=== PATIENT | female | born 1975 | race African-American/Black ===

== ENCOUNTER 2017-12-10 19:51 | Emergency (ER) | payer MEDICAID ==
[~2017-12-10 19:51] MED LIST: TOPI25 PO; [UNRECOGNIZED DRUG - OTHER] XX
[2017-12-10 20:48] VITALS: BP 133/76; PULSE 70; RESP 16; TEMP 98.3; O2SAT 99
[2017-12-11] MEDS ORDERED: DOXY100C PO (20:43)
[2017-12-11] MEDS ORDERED: ZOFR4TAB3 SL (20:43)
[2017-12-11] MEDS ORDERED: METR1TAB76 PO (20:43)
== END 2017-12-10 21:21 | disposition left against medical advice (07) ==
LOC: NED 19:51
DX: Z53.21 Procedure and treatment not carried out due to patient leaving prior to being seen by health care provider (principal)
CPT/HCPCS: 99281

== ENCOUNTER 2017-12-11 16:18 | Emergency (ER) | payer SELFPAY ==
[~2017-12-11] VITALS: Ht 172.7 cm; Wt 68.9 kg
[2017-12-11] MEDS ORDERED: IOHEXOL 350 MG/ML 10 ML VIAL (for RAD DIAG) IVCONTRAST ONE (16:19)
[2017-12-11 16:33] VITALS: BP 128/68; PULSE 85; RESP 18; TEMP 99.1; O2SAT 99
[2017-12-11] MEDS ORDERED: ONDANSETRON HCL 4 MG/2 ML VIAL IVP ONE (17:00)
[2017-12-11] MEDS ORDERED: KETOROLAC TROMETHAMINE 30 MG/ML (IVP) VIAL IV PUSH ONE (17:00)
--- NOTE | 2017-12-11 17:04 | PD ---
HPI Chief Complaint: Flank/Kidney Pain Time Seen by Provider: 16:52 Travel History International Travel<30 days: No Contact w/Intl Traveler<30days: No Traveled to known affect area: No History of Present Illness HPI 42yo F with PMH of STI years ago that was treated presents to the ED with c/o vaginal discharge for 3-4 days. Said it is fishing smelling and whitish. Then she started having lower abdominal pain radiating to bilateral lower back and associated with nausea. +Chills at home but no documented fever. Pt took BC powder with no improvement. Pt is sexually active and said she had tubal ligation before. +Dysuria. Denies any chest pain, sob, vomiting, vaginal bleeding, focal weakness or numbness. PFSH Past Medical History Blood Disorders: No Cardiovascular Problems: No Diabetes: No Diminished Hearing: No Endocrine: No Genitourinary: No Headaches: Yes Musculoskeletal: No Psychiatric: No Reproductive: No Respiratory: No Immunizations Current: Yes Migraines: Yes ?: Not LMP: november 2017 Menopausal: No : 5 Para: 5 Miscarriage: 0 : 0 Tubal Ligation: Yes Social History Alcohol Use: No Tobacco Use: Yes Substance Use: No Allergies-Medications (Allergen,Severity, Reaction): Coded Allergies: acetaminophen (Unverified Adverse Reaction, Severe, "MAKES ME SICK TO MY STOMACH", 12/11/17) doxycycline (Unverified Adverse Reaction, Severe, VOMITING, 12/11/17) hydrocodone (Unverified Adverse Reaction, Severe, "MAKES ME SICK TO MY STOMACH", 12/11/17) metronidazole (Unverified Adverse Reaction, Severe, vomit, 12/11/17) Reported Meds & Prescriptions Reported Meds & Active Scripts Active No Active Prescriptions or Reported Medications Review of Systems Except as stated in HPI: all other systems reviewed are Neg Physical Exam Narrative GENERAL: 42yo F in mild distress. SKIN: Focused skin assessment warm/dry. HEAD: Atraumatic. Normocephalic. EYES: Pupils equal and round. No scleral icterus. No injection or drainage. ENT: No nasal bleeding or discharge. Mucous membranes pink and moist. NECK: Trachea midline. No JVD. CARDIOVASCULAR: Regular rate and rhythm. No murmur appreciated. RESPIRATORY: No accessory muscle use. Clear to auscultation. Breath sounds equal bilaterally. GASTROINTESTINAL: Abdomen soft, tender diffusely but more in lower abdomen especially suprapubic region. No rebound tenderness. PELVIC: +Whitish vaginal discharge. +CMT. No adnexal tenderness. BACK: +Left CVA tenderness. MUSCULOSKELETAL: No obvious deformities. No clubbing. No cyanosis. No edema. NEUROLOGICAL: Awake and alert. No obvious cranial nerve deficits. Motor grossly within normal limits. Normal speech. PSYCHIATRIC: Appropriate mood and affect; insight and judgment normal. Data Data Last Documented VS Vital Signs Date Time Temp Pulse Resp B/P (MAP) Pulse Ox O2 Delivery O2 Flow Rate FiO2 12/11/17 20:03 66 16 140/86 (104) 12/11/17 16:33 99.1 99 Orders Orders Urinalysis - C+S If Indicated (12/11/17 16:26) Ed Urine Pregnancytest Poc (12/11/17 16:27) Complete Blood Count With Diff (12/11/17 16:58) Comprehensive Metabolic Panel (12/11/17 16:58) Gc And Chlamydia Pcr (12/11/17 16:58) Wet Prep Profile (12/11/17 16:58) Ondansetron Inj (Zofran Inj) (12/11/17 17:00) Ketorolac Inj (Toradol Inj) (12/11/17 17:00) Ct Abd/Pel W Iv Contrast(Rout) (12/11/17 ) Iohexol 350 Inj (Omnipaque 350 Inj) (12/11/17 16:19) Morphine Inj (Morphine Inj) (12/11/17 19:30) Ceftriaxone Inj (Rocephin Inj) (12/11/17 19:30) Doxycycline (Vibramycin) (12/11/17 19:30) Metronidazole (Flagyl) (12/11/17 19:30) Ondansetron Inj (Zofran Inj) (12/11/17 19:30) Lidocaine Pf 1% Inj (Xylocaine-Mpf 1% In (12/11/17 20:00) Labs Laboratory Tests Test 12/11/17 17:20 12/11/17 18:30 White Blood Count 5.6 TH/MM3 Red Blood Count 4.40 MIL/MM3 Hemoglobin 11.6 GM/DL Hematocrit 36.5 % Mean Corpuscular Volume 82.9 FL Mean Corpuscular Hemoglobin 26.5 PG Mean Corpuscular Hemoglobin Concent 31.9 % Red Cell Distribution Width 16.4 % Platelet Count 275 TH/MM3 Mean Platelet Volume 8.7 FL Neutrophils (%) (Auto) 49.4 % Lymphocytes (%) (Auto) 37.4 % Monocytes (%) (Auto) 8.8 % Eosinophils (%) (Auto) 2.8 % Basophils (%) (Auto) 1.6 % Neutrophils # (Auto) 2.7 TH/MM3 Lymphocytes # (Auto) 2.1 TH/MM3 Monocytes # (Auto) 0.5 TH/MM3 Eosinophils # (Auto) 0.2 TH/MM3 Basophils # (Auto) 0.1 TH/MM3 CBC Comment DIFF FINAL Differential Comment Urine Collection Type VOIDED Urine Color YELLOW Urine Turbidity CLEAR Urine pH 5.0 Urine Specific [place] GREATER/EQUAL 1.030 Urine Protein NEG mg/dL Urine Glucose (UA) NEG mg/dL Urine Ketones TRACE mg/dL Urine Occult Blood NEG Urine Nitrite NEG Urine Bilirubin NEG Urine Urobilinogen 0.2 MG/DL Urine Leukocyte Esterase NEG Urine WBC 0-2 /hpf Urine Squamous Epithelial Cells >8 /hpf Urine Bacteria RARE /hpf Urine Mucus MOD /lpf Microscopic Urinalysis Comment CULT NOT INDICATED Blood Urea Nitrogen 12 MG/DL Creatinine 0.98 MG/DL Random Glucose 74 MG/DL Total Protein 7.7 GM/DL Albumin 3.6 GM/DL Calcium Level 8.9 MG/DL Alkaline Phosphatase 53 U/L Aspartate Amino Transf (AST/SGOT) 12 U/L Alanine Aminotransferase (ALT/SGPT) 11 U/L Total Bilirubin 0.3 MG/DL Sodium Level 140 MEQ/L Potassium Level 3.6 MEQ/L Chloride Level 110 MEQ/L Carbon Dioxide Level 24.1 MEQ/L Anion Gap 6 MEQ/L Estimat Glomerular Filtration Rate 75 ML/MIN Clue Cells (Wet Prep) PRESENT Vaginal Trichomonas (Wet Prep) NONE SEEN Vaginal Yeast (Wet Prep) NONE SEEN MDM Medical Decision Making Medical Screen Exam Complete: Yes Emergency Medical Condition: Yes Differential Diagnosis Bacterial vaginosis vs. chlamydia vs. gonorrhea vs. tubo ovarian abscess vs. cystitis vs. nephrolithiasis vs. pyelonephritis Narrative Course 42yo F with lower abdominal pain and vaginal discharge. Pt with CMT on exam. Labs reviewed, no leukocytosis. CMP unremarkable. UA showed WBC 0-2. Culture not indicated. Wet prep positive for clue cells. Urine negative. CT a/p showed nonspecific fluid in uterine cavity. A 3.7cm right ovarian cyst is present. Otherwise normal CT of abdomen and pelvis. Pt given toradol and said pain improved but now is coming back and wants something stronger. Pt said hydrocodone makes her nauseous but no other reactions to it. Pt also has doxycycline and metronidazole listed as allergies but said it only makes her nauseous and denies any anaphylactic reaction or any lip, tongue swelling or sob. Will give medications with zofran and reevaluate patient. She is well appearing and tolerating PO. Pt reevaluated after morphine and pain has completely resolved. Abdomen is soft, NT/ND. Pt has been observed in the ED after doxycycline and metronidazole and has reactions to the medications. Pt is to follow up with [facility]. Return precautions given. Diagnosis Primary Impression: Bacterial vaginosis Additional Impressions: PID (acute pelvic inflammatory disease) Ovarian cyst Qualified Codes: N83.201 - Unspecified ovarian cyst, right side Patient Instructions: General Instructions Departure Forms: Tests/Procedures Additional Instructions: Please follow up with your [facility] in 3-7 days. Return to the ED if symptoms worsen. Med/Other Pt SpecificInfo: Prescription(s) given Scripts Ondansetron Odt (Zofran Odt) 4 Mg Tab 4 MG SL Q12HR Y for Nausea/Vomiting, #10 TAB 0 Refills Prov: Rosenda Orr DO 12/11/17 Metronidazole (Metronidazole) 500 Mg Tab 500 MG PO BID for Infection for 14 Days, #28 TAB 0 Refills Prov: Rosenda Orr DO 12/11/17 Doxycycline Hyclate (Doxycycline Hyclate) 100 Mg Cap 100 MG PO BID for Infection, #28 CAP 0 Refills Prov: Rosenda Orr DO 12/11/17 Disposition: 01 DISCHARGE HOME Condition: Stable Rosenda Orr DO Dec 11, 2017 17:04
[2017-12-11 17:53] LABS: AUTOMATED NEUTROPHIL # 2.7 TH/MM3 (1.8-7.7); BASOPHIL # 0.1 TH/MM3 (0-0.2); BASOPHIL % 1.6 % (0.0-2.0); BILIRUBIN, URINE NEG (NEG); BLOOD, URINE NEG (NEG); EOSINOPHIL # 0.2 TH/MM3 (0-0.4); EOSINOPHIL % 2.8 % (0.0-4.0); GLUCOSE,URINE NEG (NEG); HEMATOCRIT 36.5 % (35.0-46.0); HEMOGLOBIN 11.6 GM/DL (11.6-15.3); KETONE, URINE TRACE mg/dL (NEG); LYMPH % 37.4 % (9.0-44.0); LYMPHOCYTE # 2.1 TH/MM3 (1.0-4.8); MEAN CELL VOLUME 82.9 FL (80.0-100.0); MEAN CORPUSCULAR HEMOGLOBIN 26.5 PG (27.0-34.0); MEAN CORPUSCULAR HGB CONC 31.9 % (32.0-36.0); MEAN PLATELET VOLUME 8.7 FL (7.0-11.0); MONO % 8.8 % (0.0-8.0); MONOCYTE # 0.5 TH/MM3 (0-0.9); NEUT % 49.4 % (16.0-70.0); NITRITE,URINE NEG (NEG); PLATELET COUNT 275 TH/MM3 (150-450); RED CELL DISTRIBUTION WIDTH 16.4 % (11.6-17.2); URINE COLOR YELLOW (YELLW/STRAW); URINE LEUKOCYTE ESTERASE NEG (NEG); WHITE BLOOD COUNT 5.6 TH/MM3 (4.0-11.0)
[2017-12-11 18:06] LABS: CHLORIDE 110 MEQ/L (98-107); SODIUM (NA) 140 MEQ/L (136-145)
[2017-12-11 18:08] LABS: MUCUS URINE MOD /lpf (OCC); WBC, URINE 0-2 /hpf (0-5)
[2017-12-11 18:09] LABS: BACTERIA, URINE RARE /hpf; SQUAMOUS EPITHELIAL CELL URINE >8 /hpf (0-5)
[2017-12-11 18:10] LABS: CALCIUM 8.9 MG/DL (8.5-10.1)
[2017-12-11 18:11] LABS: ALBUMIN 3.6 GM/DL (3.4-5.0); BICARBONATE 24.1 MEQ/L (21.0-32.0); BLOOD UREA NITROGEN 12 MG/DL (7-18); GLUCOSE,RANDOM 74 MG/DL (74-106)
[2017-12-11 18:14] LABS: ALT (GPT) 11 U/L (10-53); AST (GOT) 12 U/L (15-37); CREATININE 0.98 MG/DL (0.50-1.00); GLOMERULAR FILTRATION RATE 75 ML/MIN (>89)
[2017-12-11 18:16] LABS: TOTAL BILIRUBIN ADULT 0.3 MG/DL (0.2-1.0); TOTAL PROTEIN 7.7 GM/DL (6.4-8.2)
[2017-12-11 18:17] LABS: ALKALINE PHOSPHATASE 53 U/L (45-117)
--- NOTE | 2017-12-11 18:59 | RADRPT ---
EXAM DATE/TIME: 12/11/2017 18:31 [facility] COMPARISON: No previous studies available for comparison. INDICATIONS : Pelvic pain, vaginal discharge and nausea. IV CONTRAST: 85 cc Omnipaque 350 (iohexol) IV ORAL CONTRAST: No oral contrast ingested. RADIATION DOSE: 6.30 CTDIvol (mGy) MEDICAL HISTORY : None SURGICAL HISTORY : Tubal ligation. ENCOUNTER: Initial ACUITY: 3 days PAIN SCALE: 6/10 LOCATION: Bilateral lower quadrant TECHNIQUE: Volumetric scanning of the abdomen and pelvis was performed. Using automated exposure control and ad justment of the mA and/or kV according to patient size, radiation dose was kept as low as reasonably achievable to obtain optimal diagnostic quality images. DICOM format image data is available electro nically for review and comparison. FINDINGS: LOWER LUNGS: The visualized lower lungs are clear. LIVER: Homogeneous density without lesion. There is no dilation of the biliary tree. No calcified gallston es. SPLEEN: Normal size without lesion. PANCREAS: Within normal limits. KIDNEYS: Normal in size and shape. There is no mass, stone or hydronephrosis. ADRENAL GLANDS: Within normal limits. VASCULAR: There is no aortic aneurysm. BOWEL/MESENTERY: The stomach, small bowel, and colon demonstrate no acute abnormality. There is no free intraperitone al air or fluid. Normal appendix. ABDOMINAL WALL: Within normal limits. RETROPERITONEUM: There is no lymphadenopathy. BLADDER: No wall thickening or mass. REPRODUCTIVE: There is nonspecific fluid in the uterine cavity. A 3.7 cm right ovarian cyst is present. There is ve ry small free fluid in the pelvic cavity. INGUINAL: There is no lymphadenopathy or hernia. MUSCULOSKELETAL: Within normal limits for patient age. CONCLUSION: 1. 3.7 cm right ovarian cyst. Trace free fluid in the pelvic cul-de-sac and small fluid in the uterin e cavity. 2. Otherwise normal CT of the abdomen and pelvis. Kit Jean-Baptiste MD on December 11, 2017 at 18:55 Board Certified Radiologist. This report was verified electronically.
[2017-12-11] MEDS ORDERED: DOXYCYCLINE HYCLATE 100 MG CAP PO ONE (19:30)
[2017-12-11] MEDS ORDERED: MORPHINE SULFATE 2 MG/ML SYRINGE IV PUSH ONE (19:30)
[2017-12-11] MEDS ORDERED: metroNIDAZOLE 500 MG TAB PO ONE (19:30)
[2017-12-11] MEDS ORDERED: ONDANSETRON HCL 4 MG/2 ML VIAL IV PUSH ONE (19:30)
[2017-12-11] MEDS ORDERED: LIDOCAINE HCL 1% 50 ML VIAL IM ONE (19:30)
[2017-12-11] MEDS ORDERED: cefTRIAXone 250 MG VIAL IM ONE (19:30)
[2017-12-11] MEDS ORDERED: LIDOCAINE HCL 1% PF 10 ML VIAL INFIL ONE (20:00)
[2017-12-11 20:03] VITALS: BP 140/86; PULSE 66; RESP 16
[2017-12-11] MEDS ORDERED: METR1TAB76 PO (20:43)
[2017-12-11] MEDS ORDERED: DOXY100C PO (20:43)
[2017-12-11] MEDS ORDERED: ZOFR4TAB3 SL (20:43)
== END 2017-12-11 21:24 | disposition home or self-care (01) ==
LOC: PHED 16:18
DX: N76.0 Acute vaginitis (principal); N73.9 Female pelvic inflammatory disease, unspecified; B96.89 Other specified bacterial agents as the cause of diseases classified elsewhere; N83.201 Unspecified ovarian cyst, right side; Z72.0 Tobacco use
CPT/HCPCS: 74177; 80053; 81001; 84703; 85025; 87210; 87491; 87591; 96372; 96374; 96375; 96376; 99285; J0696; J1885; J2270; J2405; Q9967

== ENCOUNTER 2017-12-24 10:08 | Emergency (ER) | payer SELFPAY ==
[~2017-12-24] VITALS: Ht 172.7 cm; Wt 68.0 kg
[~2017-12-24 10:08] MED LIST changes: +DOXY100C PO; +METR1TAB76 PO; -TOPI25 PO; +ZOFR4TAB3 SL; -[UNRECOGNIZED DRUG - OTHER] XX
[2017-12-24 10:14] VITALS: BP 127/71; PULSE 72; RESP 18; TEMP 98.4; O2SAT 99
[2017-12-24] MEDS ORDERED: NAPR500T2 PO (10:47)
--- NOTE | 2017-12-24 10:48 | PD ---
HPI Chief Complaint: Pain: Acute or Chronic Time Seen by Provider: 10:22 Travel History International Travel<30 days: No Contact w/Intl Traveler<30days: No Traveled to known affect area: No History of Present Illness HPI Is a well 42-year-old woman who slipped on the wet floor while mopping a couple days ago and fell on her right thigh. She has pain and tenderness in her right thigh that radiates down the leg. Worse with standing. Worse with lying flat. She has a little bit of pain and tenderness and tingling in her hands. No neck or head pain. Did not hit her head. She otherwise is well and healthy. No other complaints. History Past Medical History Medical History: Denies Significant Hx LMP: 12/24/17 Menopausal: No : 5 Para: 5 Past Surgical History Surgical History: No Previous Surgery Social History Alcohol Use: No Tobacco Use: Yes (12PPD) Allergies-Medications (Allergen,Severity, Reaction): Coded Allergies: acetaminophen (Unverified Adverse Reaction, Severe, "MAKES ME SICK TO MY STOMACH", 12/11/17) doxycycline (Unverified Adverse Reaction, Severe, VOMITING, 12/11/17) hydrocodone (Unverified Adverse Reaction, Severe, "MAKES ME SICK TO MY STOMACH", 12/11/17) metronidazole (Unverified Adverse Reaction, Severe, vomit, 12/11/17) Reported Meds & Prescriptions Reported Meds & Active Scripts Active Zofran Odt (Ondansetron Odt) 4 Mg Tab 4 Mg SL Q12HR PRN Metronidazole 500 Mg Tab 500 Mg PO BID 14 Days Doxycycline Hyclate 100 Mg Cap 100 Mg PO BID Review of Systems Except as stated in HPI: all other systems reviewed are Neg Physical Exam Narrative GENERAL: Well-appearing 42-year-old woman, no acute distress. SKIN: Warm and dry. NECK: Moves neck freely. No tenderness or restriction. CARDIOVASCULAR: Warm and well perfused. RESPIRATORY: Normal rate and effort. MUSCULOSKELETAL: Focused examination of right lower extremity reveals a palpable hematoma on the right proximal outer thigh. Hip itself is unremarkable. Full range of motion. Knees unremarkable. Right upper extremities unremarkable. NEUROLOGICAL: Awake and alert. No gross deficits. Data Data Last Documented VS Vital Signs Date Time Temp Pulse Resp B/P (MAP) Pulse Ox O2 Delivery O2 Flow Rate FiO2 4/27/18 10:14 98.4 72 18 127/71 (46) 99 MDM Medical Decision Making Medical Screen Exam Complete: Yes Emergency Medical Condition: Yes Differential Diagnosis Hematoma, fracture, strain or sprain, other Narrative Course Medical decision making This is a well 42-year-old woman presents emerged department after slip and fall with a hematoma on the right thigh. She looks well. Recommend supportive treatment. Diagnosis Primary Impression: Hematoma of right thigh Additional Instructions: Take naproxen as prescribed as needed for pain. Do not combine with other NSAIDs such as BC powder aspirin ibuprofen or Aleve. Use Santy wrap on thigh as needed for comfort. Return to the emergency department for any new or worsening symptoms. Med/Other Pt SpecificInfo: Prescription(s) given Scripts Naproxen (Naproxen) 500 Mg Tab 500 MG PO BID for 7 Days, #14 TAB 0 Refills Prov: Bryce Palm MD 12/24/17 Disposition: 01 DISCHARGE HOME Condition: Stable Bryce Palm MD Dec 24, 2017 10:47
== END 2017-12-24 11:01 | disposition home or self-care (01) ==
LOC: NEPD 10:08
DX: S70.11XA Contusion of right thigh, initial encounter (principal); W01.0XXA Fall on same level from slipping, tripping and stumbling without subsequent striking against object, initial encounter; Y93.E5 Activity, floor mopping and cleaning
CPT/HCPCS: 99283